=== PATIENT | female | born 1975 | race Caucasian/White ===

== ENCOUNTER 2019-01-12 08:19 | Emergency (ER) | payer OTHER ==
[~2019-01-12] VITALS: Ht 160 cm; Wt 145.2 kg
[2019-01-12] MEDS ORDERED: METFORMIN HCL500 MG PO (08:39)
[2019-01-12] MEDS ORDERED: CYMBALTA30 MG PO (08:39)
[2019-01-12] MEDS ORDERED: MOBIC15 MG PO (11:06)
[2019-01-12] MEDS ORDERED: CYCLOBENZAPRINE5 MG PO (11:06)
[2019-01-12 11:17] VITALS: BP 148/78
== END 2019-01-12 11:18 | disposition home or self-care (01) ==
LOC: M.ERS 08:19
DX: S13.4XXA Sprain of ligaments of cervical spine, initial encounter (principal); E11.9 Type 2 diabetes mellitus without complications; M41.9 Scoliosis, unspecified; Z88.0 Allergy status to penicillin; V43.52XA Car driver injured in collision with other type car in traffic accident, initial encounter; Y93.89 Activity, other specified; Y92.89 Other specified places as the place of occurrence of the external cause; Y99.8 Other external cause status

== ENCOUNTER → 2019-06-17 | Outpatient (CLI) | payer OTHER ==
[~2019-06-17] MED LIST: CYCLOBENZAPRINE5 MG PO; CYMBALTA30 MG PO; METFORMIN HCL500 MG PO; MOBIC15 MG PO
== END ==
LOC: M.MRI 11:20
DX: S52.592A Other fractures of lower end of left radius, initial encounter for closed fracture (principal); M79.89 Other specified soft tissue disorders; X58.XXXA Exposure to other specified factors, initial encounter; Y93.89 Activity, other specified; Y92.89 Other specified places as the place of occurrence of the external cause; Y99.8 Other external cause status